=== PATIENT | male | born 1955 | race American Indian/Alaskan Native ===

== ENCOUNTER 2018-07-21 08:49 | Inpatient (IN) ==
[2018-07-17 17:45] LABS: Basophils # (Auto) 0 K/mcL (0.0-0.3); Basophils % (Auto) 0.4 % (0.0-2.0); Eosinophils # (Auto) 0.3 K/mcL (0.0-0.7); Eosinophils % (Auto) 3.9 % (0.0-7.0); Granulocytes % (Auto) 59.7 % (38.0-78.0); Lymphocytes # (Auto) 2.2 K/mcL (1.5-4.8); Lymphocytes % (Auto) 26.6 % (15.5-49.0); Mean Cell Volume 86.3 fL (80.0-100.0); Mean Corpuscular HGB Conc 32.9 g/dL (31.0-36.0); Monocytes # (Auto) 0.8 K/mcL (0.1-0.9); Monocytes % (Auto) 9.4 % (1.0-12.0); Platelet Count 254 K/mcL (140-440); RBC 5.29 M/mcL (4.50-5.90)
[2018-07-17 17:49] LABS: Appearance,Urine CLEAR; Bacteria,Urine 0 /hpf (0); Bilirubin,Urine NEG (NEG); Color,Urine YELLOW; Glucose,Urine (UA) NEGATIVE (NEG); Leukocyte Esterase,Urine 25 /uL (NEG); Mucus,Urine FEW /hpf (0); Protein,Urine NEG (NEG); Specific Gravity,Urine 1.023 (1.000-1.035); Urine Blood NEG mg/dL (<0.03); Urine RBC < 1 /hpf (0-1); Urine Squamous Epithelial Cell 0 /hpf (0-4); Urine WBC 3 /hpf (0-4); Urobilinogen,Urine NEG (NEG)
[2018-07-17 18:12] LABS: Blood Urea Nitrogen 15 mg/dl (6-20)
[~2018-07-21 08:49] MED LIST: 0.9 % SODIUM CHLORIDE 9 ML, KETOROLAC 30 MG, ROPIVACAINE HCL/PF 49.5 ML, EPINEPHrine 0.... IJ SCH; ACETAMINOPHEN 500 MG TABLET PO SCH; CELECOXIB 200 MG CAPSULE PO SCH; PREGABALIN 75 MG CAPSULE PO SCH; ceFAZolin 1 GM VIAL IV SCH; oxyCODONE 10 MG TAB.ER.12H PO SCH
[2018-07-21] MEDS ORDERED: TRANEXAMIC ACID 1,000 MG/10 ML VIAL IV ONE ×2 (10:50→12:32)
[2018-07-21] MEDS ORDERED: MIDAZOLAM 5 MG/5 ML VIAL IV ONE (10:50)
[2018-07-21] MEDS ORDERED: KETAMINE 100 MG/ML ML IV ONE (10:50)
[2018-07-21] MEDS ORDERED: PROPOFOL 200 MG/20 ML VIAL IV ONE (10:50)
[2018-07-21] MEDS ORDERED: ONDANSETRON 4 MG/2 ML VIAL IV ONE (10:50)
[2018-07-21] MEDS ORDERED: PHENYLEPHRINE 10 MG/ML VIAL IV ONE (10:50)
[2018-07-21] MEDS ORDERED: ePHEDrine 50 MG/ML AMPUL IV ONE (10:50)
[2018-07-21] MEDS ORDERED: ROPIVACAINE HCL/PF 20 ML VIAL IJ ONE (10:50)
[2018-07-21] MEDS ORDERED: GLYCOPYRROLATE 0.2 MG/ML VIAL IV ONE (10:50)
[2018-07-21] MEDS ORDERED: DEXAMETHASONE 10 MG/ML VIAL IV ONE (10:50)
[2018-07-21] MEDS ORDERED: LIDOCAINE HCL/PF 100 MG/5 ML SYRINGE IV ONE (10:50)
[2018-07-21] MEDS ORDERED: GENTAMICIN SULFATE 800 MG/20 ML VIAL IR ONE (11:10)
[2018-07-21] MEDS ORDERED: BENZOCAINE/MENTHOL 1 LOZENGE PO PRN ×2 (11:16→12:32)
[2018-07-21] MEDS ORDERED: LACTATED RINGERS 250 ML IV PRN (11:16)
[2018-07-21] MEDS ORDERED: METHOCARBAMOL 1,000 MG/10 ML VIAL IV PRN (11:16)
[2018-07-21] MEDS ORDERED: NALOXONE HCL 0.4 MG/ML VIAL IV PRN (11:16)
[2018-07-21] MEDS ORDERED: ONDANSETRON 4 MG/2 ML VIAL IV PRN ×2 (11:16→12:32)
[2018-07-21] MEDS ORDERED: IPRATROPIUM/ALBUTEROL 3 ML AMPUL.NEB NEB PRN (11:16)
[2018-07-21] MEDS ORDERED: HYDROmorphone 2 MG/ML VIAL IV PRN (11:16)
[2018-07-21] MEDS ORDERED: KETOROLAC 30 MG/ML VIAL IV PRN (11:16)
[2018-07-21] MEDS ORDERED: MEPERIDINE 25 MG/ML SYRINGE IV PRN (11:16)
[2018-07-21] MEDS ORDERED: FLUMAZENIL 0.1 MG/ML ML IV PRN (11:16)
[2018-07-21] MEDS ORDERED: LACTATED RINGERS 1,000 ML IV SCH (11:30)
[2018-07-21] MEDS ORDERED: FLEETS ADULT ENEMA PR PRN (12:32)
[2018-07-21] MEDS ORDERED: TEMAZEPAM 15 MG CAPSULE PO PRN (12:32)
[2018-07-21] MEDS ORDERED: POLYETHYLENE GLYCOL 3350 17 GM PACKET PO PRN (12:32)
[2018-07-21] MEDS ORDERED: MAGNESIUM HYDROXIDE 30 ML ORAL.SUSP PO PRN (12:32)
[2018-07-21] MEDS ORDERED: ACETAMINOPHEN 325 MG TABLET PO PRN (12:32)
[2018-07-21] MEDS ORDERED: BISACODYL 10 MG SUPP.RECT PR PRN (12:32)
--- NOTE | 2018-07-21 12:32 | Brief Operative Note ---
Date of procedure: 07/21/18 Pre-op diagnosis: lefrt knee djd severe Post-op diagnosis: same Procedure: left robotic tka Grafts/Implants: Yes Anesthesia: GETA Complications: none Surgeon: Varinder Manjarrez Head Paper Tester: Jadiel Box Estimated blood loss (cc): 50 Tourniquet Time (Minutes): 52 Specimens Removed/Pathology: none sent Condition: stable Disposition: PACU
--- NOTE | 2018-07-21 13:16 | Operative Note ---
DATE OF OPERATION: 07/21/2018 PREOPERATIVE DIAGNOSIS: Left knee severe degenerative arthritis. POSTOPERATIVE DIAGNOSIS: Left knee severe degenerative arthritis. PROCEDURE: Left robotic total knee arthroplasty. SURGEON: Varinder Manjarrez M.D. IP ATTORNEY: Jadiel Box PA-C. ANESTHESIA: General LMA anesthesia by Prashant Reeves CRNA. COMPLICATIONS: None. ESTIMATED BLOOD LOSS: About 60 mL. TOURNIQUET TIME: Approximately 52 minutes. DESCRIPTION OF PROCEDURE: The patient was brought to the operating room, put to sleep with general LMA anesthesia. Once asleep, the patient had the left leg sterilely prepped and draped in the usual sterile fashion. Timeout was performed. We confirmed the operative site. We then made a midline incision, midvastus approach performed on the left leg. Ioban placed over the skin. The arrays above and below the knee were drilled and placed. Center of hip rotation registered. Medial and lateral malleoli were registered, and thirty points on the femur and the tibia were registered. We then balanced the knee both in flexion and extension, and once the robot had perfectly balanced this through adjustments of the implant, starting with a deformity of a 7 degree flexion contracture as well as 3 degrees of varus. Once this was documented, we then brought in the robot, made the bony cuts on the tibia and the femur. Once done, we then trialed the implant, setting rotation using the robot alignment and the femoral component. Once done, we then trialed a standard 9 mm poly. This seemed to fit very nicely both in flexion and extension, achieving 3 degrees of flexion contracture and perfect alignment AP with 3 degrees back at varus, his anatomy. We irrigated thoroughly and then cemented into place the components. These were size 5 tibial baseplate, size 5 femur, 9 mm poly insert with a deep dish. We had a retained posterior cruciate ligament given his young age and activity level. Once this was taken in extension, we prepared the patella. It measured 25 mm in thickness and this was cut to 15 mm. We then used a 35 mm patellar button, and this was cemented into place. A small chamfer cut was made laterally so no impingement would occur. We irrigated thoroughly and then took the knee to 45 degrees until all cement was dry. We then reinspected for any loose cement, which was removed. Any fatty or synovial tissues that would impinge were removed as well. Once done, we then made a standard closure after deflating our tourniquet at 52 minutes. The tourniquet pressure was 250 pounds of pressure. Once tourniquet was deflated and we controlled bleeding, we injected the soft tissues with the post-inject formula, and this was closed with #2 Stratafix x2 sutures. The skin was closed with Stratafix and adhesive closure on the skin. The patient tolerated this well. There were no complications. He tolerated the procedure well. ANTONY:nohelia Job ID: [id number] Doc ID: [id number] Varinder Manjarrez MD
--- NOTE | 2018-07-21 13:28 | XRay Report ---
CLINICAL INFORMATION: Postsurgical follow-up TECHNIQUE: AP and crosstable lateral left knee COMPARISON: None. FINDINGS: Status post left total knee arthroplasty. Femoral and tibial components are in anatomic positions. There is postsurgical soft tissue and intra-articular gas IMPRESSION: Left total knee arthroplasty Interpreted and Authenticated by: Paddy Cooper 07/21/18
[2018-07-21] MEDS: fentaNYL 100 MCG/2 ML VIAL IV PRN ×3 (13:31→13:40)
[2018-07-21] MEDS: HYDROmorphone 2 MG/ML VIAL IV PRN ×3 (14:05→20:41)
[2018-07-21] MEDS: 0.45 % SODIUM CHLORIDE 1,000 ML IV SCH ×2 (14:08→23:47)
[2018-07-21] MEDS: 0.9 % SODIUM CHLORIDE 10 ML SYRINGE IV SCH ×2 (14:09→23:09)
[2018-07-21] MEDS: HYDROcodone/APAP 10/325MG TABLET PO PRN ×2 (15:43→23:05)
[2018-07-21] MEDS: KETOROLAC 15 MG/ML VIAL IV SCH ×2 (17:22→23:03)
[2018-07-21] MEDS: ceFAZolin 1 GM VIAL IV SCH (17:24)
[2018-07-21] MEDS ORDERED: SENNOSIDES 1 TABLET PO SCH (21:00)
[2018-07-21] MEDS: DOCUSATE SODIUM 100 MG CAPSULE PO SCH (23:08)
[2018-07-21] MEDS: ASPIRIN 325 MG ENTERIC COATED TABLET PO SCH (23:08)
[2018-07-22] MEDS: HYDROmorphone 2 MG/ML VIAL IV PRN ×2 (02:01→04:12)
[2018-07-22] MEDS: ceFAZolin 1 GM VIAL IV SCH (02:01)
[2018-07-22] MEDS: HYDROcodone/APAP 10/325MG TABLET PO PRN ×3 (04:14→12:10)
[2018-07-22] MEDS: KETOROLAC 15 MG/ML VIAL IV SCH ×2 (05:56→11:23)
--- NOTE | 2018-07-22 07:44 | Orthopedic Progress Note ---
Subjective Patient information: Note initiated : 07/22/18 at 7:43 am Service Date, if different from initiated Date: [] Patient: Irving Holbrook 62 y/o M admitted on 07/21/18 for Left Robotic Total Knee Arthroplasty. Chief Complaint: [Pt is stable this morning on post operative day 1 without any significant concerns or complaints. Patients vital signs have remained stable. Patients dressing is dry and is grossly intact from a neurovascular and motor standpoint. Patients 10 point ROS is otherwise negative. ] Objective Vital signs: Vital Signs Temp Pulse Resp BP Pulse Ox 07/22/18 04:00 98.2 F 106 H 18 119/87 95 07/21/18 23:51 97.8 F 106 H 18 123/84 96 07/21/18 20:00 98.2 F 110 H 18 132/92 94 07/21/18 15:55 96 H 124/86 96 07/21/18 15:26 91 H 124/83 96 07/21/18 14:55 92 H 126/88 92 07/21/18 14:40 103 H 109/78 92 07/21/18 14:25 102 H 117/81 93 07/21/18 14:11 102 H 134/86 92 07/21/18 13:51 105 H 140/85 96 07/21/18 13:42 97.1 F 100 H 15 140/85 99 07/21/18 13:27 98 H 14 112/67 99 07/21/18 13:12 97.0 F 79 10 L 100/59 99 07/21/18 13:00 81 11 L 103/59 99 07/21/18 12:57 96.3 F L 87 14 106/64 100 07/21/18 12:56 80 11 L 104/59 100 07/21/18 09:16 96.7 F L 91 H 16 126/91 97 07/21/18 08:49 18 Intake and Output 07/21/18 07/22/18 07/22/18 21:59 05:59 13:59 Intake Total 965 Output Total 450 350 200 Balance -450 615 -200 Intake: IV 965 Sodium Chloride 0.45% 1,000 ml 965 @ 100 mls/hr IV .Q10H TAMIA Rx#: [id number] Output: Void Amount 450 350 200 Other: Meal milkshake Percent of Meal Consumed 100% Feeding Ability Independent # Voids 1 Weight 203 lb 8 oz Intake & Output: Intake & Output 07/21/18 07/22/18 07/22/18 21:59 05:59 13:59 Intake Total 965 Output Total 450 350 200 Balance -450 615 -200 Weight 203 lb 8 oz Intake: IV 965 Sodium Chloride 0.45% 1,000 ml 965 @ 100 mls/hr IV .Q10H TAMIA Rx#: [id number] Output: Void Amount 450 350 200 Other: Meal milkshake Percent of Meal Consumed 100% Feeding Ability Independent # Voids 1 Incision: Yes healing Incision clean and dry: Yes Dressing: Yes clean Neurological exam IM: Yes motor sensory intact, Yes neurovascular intact Extremities exam IM: Yes Foot pink and warm, Yes neurovascular intact - Labs CBC & BMP: 07/22/18 04:30 07/17/18 15:55 Labs: Orthopedic Labs 07/21/18 07/17/18 09:14 15:55 PT 13.4 INR 1.0 APTT 31 07/22/18 07/17/18 04:30 15:55 Hgb 15.0 Hct 38.1 L 45.6 Assessment and Plan (1) Hx of total knee arthroplasty The patient has been educated regarding dressing care, Physical Therapy recommendations, home exercises, restrictions, and follow up appointments. The patient has had all necessary DME prescribed. The patient has remained relatively stable during their hospital course. Leave Dermabond patch intact until followup Status: Acute
--- NOTE | 2018-07-22 07:46 | Discharge Summary ---
Ortho Discharge - TKA - Patient Instructions Diet: Regular Diet Activity: activity as tolerated, weight bearing as tolerated Total Knee Protocol: For Total Knee: Start ROM NAYE with stationary bike or rocking chair. Work on gaining full extension of knee. Posterior dislocation precautions provided. Hip abductor strengthening and gait training instructions provided. Apply Cryocuff as instructed. Dressing Care: May shower in 2 days - Problem Maintenance (1) Hx of total knee arthroplasty Status: Acute - Follow Up Plan Follow Up Appointments: Jadiel Box PA-C [Physician [employer]inator] - 08/05/18 1:10 pm Disposition: Home, Self-Care Prognosis: Good Rehab Potential: Good I certify that the patient requires SNF services: No Overall status at discharge: patient is progressing back to baseline - Orders For Discharge Prescriptions: Aspirin [Ecotrin] 325 mg PO BID #60 tab.ec Docusate Sodium [Colace] 100 mg PO BID #60 capsule HYDROcodone/APAP 10/325MG [[place] 10-325Mg] 1 - 2 tab PO Q4HP PRN #75 tablet PRN Reason: Pain Level 3-6
[2018-07-22] MEDS: 0.9 % SODIUM CHLORIDE 10 ML SYRINGE IV SCH (08:03)
[2018-07-22] MEDS: DOCUSATE SODIUM 100 MG CAPSULE PO SCH (08:09)
[2018-07-22] MEDS: ASPIRIN 325 MG ENTERIC COATED TABLET PO SCH (08:09)
[2018-07-22] MEDS: 0.45 % SODIUM CHLORIDE 1,000 ML IV SCH (10:09)
[2018-07-25] MEDS ORDERED: ERGOCALCIFEROL (VITAMIN D2) 50,000 UNIT CAPSULE PO SCH (09:00)
== END 2018-07-22 14:07 | disposition home or self-care (01) | DRG 470 ==
LOC: MEDSUR 08:49
PROVIDERS: ADMIT Orthopaedic Surgery; ATTEND Orthopaedic Surgery